=== PATIENT | female | born 1950 | race Caucasian/White ===

== ENCOUNTER → 2016-08-11 | Outpatient (CLI) | payer MEDICARE ==
[2016-08-11 11:50] LABS: HEMATOCRIT 39.4 % (35.0-46.0); MEAN CELL VOLUME 81.4 FL (80.0-100.0); MEAN CORPUSCULAR HEMOGLOBIN 27.5 PG (27.0-34.0); MEAN CORPUSCULAR HGB CONC 33.7 % (32.0-36.0); PLATELET COUNT 256 TH/MM3 (150-450); RED BLOOD COUNT 4.84 MIL/MM3 (4.00-5.30); RED CELL DISTRIBUTION WIDTH 14.2 % (11.6-17.2); REVIEW FLAG FINAL; WHITE BLOOD COUNT 7.3 TH/MM3 (4.0-11.0)
[2016-08-11 12:17] LABS: ALT (GPT) 30 U/L (10-53); ANION GAP 6 MEQ/L (5-15); AST (GOT) 18 U/L (15-37); BICARBONATE 29.5 MEQ/L (21.0-32.0); BLOOD UREA NITROGEN 17 MG/DL (7-18); CHLORIDE 105 MEQ/L (98-107); GLOMERULAR FILTRATION RATE 99 ML/MIN (>89); GLUCOSE,FASTING 110 MG/DL (74-99); POTASSIUM 3.5 MEQ/L (3.5-5.1); SODIUM (NA) 140 MEQ/L (136-145); THEOPHYLLINE 12.2 MCG/ML (10.0-20.0)
[2016-08-11 12:26] LABS: ALKALINE PHOSPHATASE 95 U/L (45-117); THYROXINE (T4) 9.9 MCG/DL (4.8-13.9); TOTAL BILIRUBIN ADULT 0.4 MG/DL (0.2-1.0)
== END ==
LOC: ELAB 09:40
DX: I10 Essential (primary) hypertension (principal); E03.9 Hypothyroidism, unspecified; J44.9 Chronic obstructive pulmonary disease, unspecified; J45.909 Unspecified asthma, uncomplicated; R06.02 Shortness of breath
CPT/HCPCS: 36415; 80053; 80198; 84436; 84443; 84480; 85027

== ENCOUNTER → 2017-02-20 | Outpatient (CLI) | payer MEDICARE ==
[2017-02-20 12:18] LABS: HEMATOCRIT 39.1 % (35.0-46.0); MEAN CELL VOLUME 82.1 FL (80.0-100.0); MEAN CORPUSCULAR HEMOGLOBIN 26.9 PG (27.0-34.0); MEAN CORPUSCULAR HGB CONC 32.8 % (32.0-36.0); PLATELET COUNT 284 TH/MM3 (150-450); RED BLOOD COUNT 4.76 MIL/MM3 (4.00-5.30); REVIEW FLAG FINAL
[2017-02-20 12:48] LABS: ALT (GPT) 23 U/L (10-53); ANION GAP 3 MEQ/L (5-15); AST (GOT) 13 U/L (15-37); BICARBONATE 35.3 MEQ/L (21.0-32.0); BLOOD UREA NITROGEN 13 MG/DL (7-18); CHLORIDE 102 MEQ/L (98-107); GLOMERULAR FILTRATION RATE 101 ML/MIN (>89); GLUCOSE,FASTING 100 MG/DL (74-99); POTASSIUM 3.4 MEQ/L (3.5-5.1); SODIUM (NA) 140 MEQ/L (136-145)
[2017-02-20 12:58] LABS: ALKALINE PHOSPHATASE 115 U/L (45-117); HDL CHOLESTEROL 67.4 MG/DL (40.0-60.0); LDL CHOLESTEROL 93 MG/DL (0-99); THEOPHYLLINE 7.4 MCG/ML (10.0-20.0); TOTAL BILIRUBIN ADULT 0.4 MG/DL (0.2-1.0)
== END ==
LOC: ELAB 09:47
DX: J44.9 Chronic obstructive pulmonary disease, unspecified (principal); E03.9 Hypothyroidism, unspecified; R06.00 Dyspnea, unspecified
CPT/HCPCS: 36415; 80053; 80061; 80198; 84443; 84480; 85027

== ENCOUNTER → 2017-05-29 | Outpatient (CLI) | payer MEDICARE ==
[2017-05-29 12:01] LABS: HEMATOCRIT 38.5 % (35.0-46.0); HEMOGLOBIN 12.6 GM/DL (11.6-15.3); MEAN CELL VOLUME 83.3 FL (80.0-100.0); MEAN CORPUSCULAR HEMOGLOBIN 27.4 PG (27.0-34.0); MEAN CORPUSCULAR HGB CONC 32.9 % (32.0-36.0); PLATELET COUNT 366 TH/MM3 (150-450); RED BLOOD COUNT 4.62 MIL/MM3 (4.00-5.30); RED CELL DISTRIBUTION WIDTH 13.8 % (11.6-17.2); WHITE BLOOD COUNT 7.8 TH/MM3 (4.0-11.0)
[2017-05-29 12:44] LABS: ALBUMIN 3.8 GM/DL (3.4-5.0); ALT (GPT) 84 U/L (10-53); AST (GOT) 25 U/L (15-37); BICARBONATE 31.9 MEQ/L (21.0-32.0); BLOOD UREA NITROGEN 15 MG/DL (7-18); CHLORIDE 102 MEQ/L (98-107); CHOLESTEROL 171 MG/DL (120-200); CREATININE 0.54 MG/DL (0.50-1.00); GLOMERULAR FILTRATION RATE 114 ML/MIN (>89); GLUCOSE,FASTING 106 MG/DL (74-99); SODIUM (NA) 141 MEQ/L (136-145); TRIGLYCERIDES 155 MG/DL (42-150)
[2017-05-29 12:54] LABS: ALKALINE PHOSPHATASE 402 U/L (45-117); CHOLESTEROL/ HDL RATIO 2.91 RATIO; HDL CHOLESTEROL 58.6 MG/DL (40.0-60.0); LDL CHOLESTEROL 81 MG/DL (0-99); TOTAL BILIRUBIN ADULT 0.4 MG/DL (0.2-1.0); TOTAL PROTEIN 7.7 GM/DL (6.4-8.2)
== END ==
LOC: ELAB 10:58
DX: J44.9 Chronic obstructive pulmonary disease, unspecified (principal); R05 Cough; R06.00 Dyspnea, unspecified; E03.9 Hypothyroidism, unspecified; Z79.899 Other long term (current) drug therapy
CPT/HCPCS: 36415; 80053; 80061; 84443; 85027

== ENCOUNTER → 2017-07-02 | Outpatient (CLI) | payer MEDICARE ==
[2017-07-02 15:30] LABS: HEPATITIS A AB IGM NEGATIVE (NEGATIVE); HEPATITIS B CORE AB IGM NEGATIVE (NEGATIVE); HEPATITIS B SURFACE ANTIGEN NEGATIVE (NEGATIVE); HEPATITIS C AB IgG REACTIVE (NEGATIVE)
== END ==
LOC: ELAB 10:43
PROVIDERS: ATTEND Family Medicine
DX: R94.5 Abnormal results of liver function studies (principal)
CPT/HCPCS: 36415; 80074

== ENCOUNTER → 2017-08-07 | Outpatient (CLI) | payer MEDICARE ==
[2017-08-07 14:32] LABS: DIRECT BILIRUBIN ADULT 0.1 MG/DL (0.0-0.2); INDIRECT BILIRUBIN 0.4 MG/DL (0.0-0.8); TOTAL BILIRUBIN ADULT 0.5 MG/DL (0.2-1.0); TOTAL PROTEIN 8.1 GM/DL (6.4-8.2)
[2017-08-10 17:53] LABS: ENDOMYSIAL AB SCREEN ND (NEGATIVE); ENDOMYSIAL AB TITER ND (<1:5)
== END ==
LOC: ELAB 10:30
PROVIDERS: ATTEND Internal Medicine Gastroenterology
DX: R10.11 Right upper quadrant pain (principal); K80.20 Calculus of gallbladder without cholecystitis without obstruction; R74.8 Abnormal levels of other serum enzymes; R19.4 Change in bowel habit; R15.9 Full incontinence of feces; Z12.11 Encounter for screening for malignant neoplasm of colon
CPT/HCPCS: 36415; 80076; 82784; 82977; 83516; 87522; 87902

== ENCOUNTER → 2017-08-30 | Outpatient (CLI) | payer MEDICARE | LOC: HRSP 09:52 | DX: J44.9 Chronic obstructive pulmonary disease, unspecified (principal); R06.00 Dyspnea, unspecified | CPT/HCPCS: 94060; 94726; 94729 ==